=== PATIENT | male | born 1990 | race Caucasian/White ===

== ENCOUNTER → 2024-10-27 14:09 | Outpatient (BNVA) | payer SELFPAY | PROVIDERS: Visit Provider Nurse Practitioner | DX: I10 Essential (primary) hypertension (principal); M10.9 Gout, unspecified | CPT/HCPCS: 80053; 80061; 84443; 84550; 85025; 85651; 86038; 86140 ==

== ENCOUNTER → 2024-11-15 10:04 | Outpatient (BNVA) | payer SELFPAY | PROVIDERS: PCP Nurse Practitioner; Referring Provider Nurse Practitioner; Visit Provider Nurse Practitioner | DX: R74.8 Abnormal levels of other serum enzymes (principal) | CPT/HCPCS: 80053 ==